=== PATIENT | male | born 1970 | race Caucasian/White ===

== ENCOUNTER 2020-06-18 13:54 | Inpatient (IN) | payer BC ==
[~2020-06-18] VITALS: Ht 170.2 cm; Wt 95.3 kg
--- NOTE | 2020-06-18 07:15 | NUR ---
NURSE NOTES: Received report from HERMINIO Bhagat. Pt is A&Ox4 in bed. Pt is in no distress or pain at this time and is able to make needs known. Patient has belongings at bedside, call light within reach, side rails up x2, bed locked and in lowest position. Will obtain admission orders Addendum: 06/19/20 at 0027 by Timothy Wood RN Edit: Note put in at 19:15 06-18-2020
--- NOTE | 2020-06-18 18:00 | NUR ---
NURSE NOTES: Patient received from [place] by paramedics into room 420 bed 2.patient is alert and oriented.respirations unlabored.IV in the upper left arm intact.patient has personal belongings,cell phone ,ground host/hostess at bedside. Patient has wallet with howard and credit cards but wants to keep at bedside.Offer was given to have valuables place in hospital safe but patient decline.Call light within reach.
[2020-06-18 18:05] VITALS: BP 130/85
--- NOTE | 2020-06-18 19:28 | NUR ---
NURSE HAND-OFF: Timothy DURHAM Important Events on Shift:[] Patient Status: [] stable alert and oriented. Diet: [] Pending Orders: [Waiting for DR Nguyễn edmond.] Pending Results/Labs:[] Pending MD notification:[] Latest Vital Signs: Temperature 98.4 , Pulse 68 , B/P 130 /85 , Respiratory Rate 18 , O2 SAT 94 , , O2 Flow Rate . Vital Sign Comment: [] Latest Fabian Fall Score: Fall Risk: Safety Measures: Call light Within Reach, Bed Alarm Zone 2, Side Rails Side Rails x1, Bed position Low and Locked. Fall Precautions: Yellow Socks Report given to [].
[2020-06-18 20:00] VITALS: BP 132/84
[2020-06-18] MEDS: NovoLOG Insulin Flexpen SUBQ SCH (21:00)
[2020-06-18] MEDS ORDERED: HydrALAZINE 25mg tab ORAL PRN (21:00)
--- NOTE | 2020-06-18 21:00 | NUR ---
NURSE NOTES: Received orders from , will input and carry them out as ordered.
[2020-06-18] MEDS: Heparin 5000 units/ml inj SUBQ SCH (21:32)
[2020-06-18] MEDS: NS w/KCl 20mEq 1000ml 1,000 ML IV SCH (21:34)
[2020-06-19] VITALS (11 sets, daily range): BP systolic 134–171; BP diastolic 70–108
[2020-06-19] MEDS ORDERED: NORVASC10 MG ORAL (05:15)
[2020-06-19] MEDS ORDERED: SERTRALINE HCL100 MG PO (05:15)
[2020-06-19] MEDS ORDERED: BUPROPION XL300 MG ORAL (05:15)
[2020-06-19] MEDS ORDERED: BENAZEPRIL HCL40 MG ORAL (05:15)
[2020-06-19] MEDS ORDERED: CRESTOR10 M1 ORAL (05:15)
[2020-06-19] MEDS ORDERED: HYDROCHLOROTH12.5 MG ORAL ×2 (05:15→09:02)
[2020-06-19] MEDS ORDERED: METHADONE HCL10 MG ORAL (05:15)
[2020-06-19] MEDS: Heparin 5000 units/ml inj SUBQ SCH ×3 (06:23→21:49)
[2020-06-19] MEDS: NovoLOG Insulin Flexpen SUBQ SCH ×4 (06:23→21:00)
[2020-06-19 06:43] LABS: BASOPHILS % (AUTO) 0.7 % (0.0-2.0); EOSINOPHILS % (AUTO) 0.8 % (0.0-3.0); HEMATOCRIT 43.8 % (42.0-52.0); HEMOGLOBIN 14.1 G/DL (14.2-18.0); LYMPHOCYTES % (AUTO) 18.2 % (20.0-45.0); MEAN CORPUSCULAR VOLUME 89 FL (80-99); MONOCYTES % (AUTO) 7.4 % (1.0-10.0); NEUTROPHILS % (AUTO) 72.8 % (45.0-75.0); PLATELET COUNT 221 K/UL (150-450); RED BLOOD COUNT 4.93 M/UL (4.70-6.10); RED CELL DISTRIBUTION WIDTH 13.4 % (11.6-14.8); WHITE BLOOD COUNT 13.1 K/UL (4.8-10.8)
[2020-06-19 07:07] LABS: ALANINE AMINOTRANSFERASE 37 U/L (12-78); ALBUMIN 3.8 G/DL (3.4-5.0); ALBUMIN/GLOBULIN RATIO 1.3 (1.0-2.7); ALKALINE PHOSPHATASE 61 U/L (46-116); ANION GAP 8 mmol/L (5-15); ASPARTATE AMINO TRANSFERASE 27 U/L (15-37); BILIRUBIN,TOTAL 0.5 MG/DL (0.2-1.0); BLOOD UREA NITROGEN 18 mg/dL (7-18); CALCIUM 8.4 MG/DL (8.5-10.1); CARBON DIOXIDE 29 MMOL/L (21-32); CHLORIDE 103 MMOL/L (98-107); CREATININE 0.9 MG/DL (0.55-1.30); PHOSPHORUS 2.9 MG/DL (2.5-4.9); SODIUM 140 MMOL/L (136-145)
--- NOTE | 2020-06-19 07:30 | NUR ---
NURSE NOTES: Report received from Timothy DURHAM , rounds made. Patient walking around room. AOx4, slightly anxious. Respirations even/unlabored on RA. RH pink, slightly swollen, IV clamped off, will attempt to restart new IV. Headache improved, /, requesting Methadone, will follow up with pharmacy. Call light in reach, bed in lowest position, will continue to monitor.
--- NOTE | 2020-06-19 07:30 | NUR ---
NURSE HAND-OFF: Important Events on Shift: headache, BS within normal limits Patient Status: calm Diet: ccho medium low salt Pending Orders: Pending Results/Labs: Pending MD notification: Latest Vital Signs: Temperature 99.1 , Pulse 75 , B/P 134 /74 , Respiratory Rate 16 , O2 SAT 97 , , O2 Flow Rate . Vital Sign Comment: VSS Latest Fabian Fall Score: 35 Fall Risk: Medium Risk Safety Measures: Call light Within Reach, Bed Alarm Zone 2, Side Rails Side Rails x2, Bed position Low and Locked. Fall Precautions: Yellow Socks Patient Fall Education Report given to HERMINIO Ly.
--- NOTE | 2020-06-19 07:35 | NUR ---
NURSE NOTES: Critical lab, Troponin 0.281, Dr. Adrian notified, orders to repeat Troponin in 6 hours.
--- NOTE | 2020-06-19 08:50 | NUR ---
NURSE NOTES: Medical Release Form for Methadone Clinic information, completed by patient and picked up by English Language Learner Teacher at this time.
[2020-06-19] MEDS: Atorvastatin 20mg tab ORAL SCH (08:56)
[2020-06-19] MEDS: BuPROPion XL 150mg tab ORAL SCH (08:56)
[2020-06-19] MEDS: Sertraline 100mg tab ORAL SCH (08:57)
--- NOTE | 2020-06-19 09:48 | NUR ---
NURSE NOTES: Dr. Adrian notified of patient requesting Hydrochlorothiazide 12.5 mg PO daily (home medication), reviewed BP 171/87 this AM and eMAR, orders to increase Norvasc to 10 mg PO daily and give Norvasc 5 mg PO x1 now. Will update patient, and follow as ordered.
[2020-06-19] MEDS: NS w/KCl 20mEq 1000ml 1,000 ML IV SCH (11:20)
--- NOTE | 2020-06-19 12:10 | NUR ---
NURSE NOTES: Patient requesting to go home today, notified Dr. dArian, no orders for discharge today, possibly tomorrow. Informed patient, he states he feels anxious because he does not know why he needs to stay in the hospital and when his doctor will come in to see him, RN explained that he will have repeat labs done later today (explained Troponin level) and that we need to monitor his blood sugar and blood pressure, verbalized understanding. Dr. Adrian notified of BP 171/108 (will medicate with Hydralazine as ordered) Dr. Adrian ordered Ativan 0.5 mg IV Q6H PRN anxiety and Maalox 30 ml Q6H PRN for Heartburn (patient was complaining of heartburn and had small emesis 25 ml undigested food, will medicate with Zofran if needed).
--- NOTE | 2020-06-19 12:16 | Consultation ---
History of Present Illness General Date patient seen: Jun 19, 2020 Present Illness HPI Very pleasant 50-year-old male who has been on methadone for some time states that he woke up in the morning took a dose of methadone had nausea and vomiting after emesis took a second dose of methadone and was soon after found down went to outside facility for evaluation at which point he was transferred to [facility] for further care given insurance reasons. States an outside facility was noted to have significantly elevated glucose levels. States he does not have a history of diabetes does overweight and risk factors noted. States he feels better now. No further syncopal episodes. Alert awake orient x4 no complaints. Does not recall the trauma though does not know if it was loss consciousness or syncopal event. Surgery called to evaluate for trauma and fall. Patient seen, patient evaluate, chart reviewed no abdominal pain no nausea vomiting fever chills at this time. Labs noted and okay. Allergies: Coded Allergies: No Known Allergies (Unverified , 06/18/20) COVID-19 Screening Contact w/high risk pt: No Experienced COVID-19 symptoms?: No Medication History Scheduled Amlodipine Besylate (Norvasc), 10 MG ORAL DAILY, (Reported) Benazepril Hcl* (Benazepril Hcl*), 40 MG ORAL DAILY, (Reported) Bupropion Hcl* (Wellbutrin*), 300 MG ORAL DAILY, (Reported) Hydrochlorothiazide* (Hydrochlorothiazide*), 12.5 MG ORAL DAILY, (Reported) Hydrochlorothiazide* (Hydrochlorothiazide*), 12.5 MG ORAL DAILY, (Reported) Methadone Hcl* (Methadone*), 120 MG ORAL DAILY, (Reported) Rosuvastatin Calcium (Crestor), 20 MG ORAL DAILY, (Reported) Sertraline Hcl* (Zoloft*), 200 MG PO DAILY, (Reported) Patient History History Provided By: Patient Healthcare decision maker N Resuscitation status Advanced Directive on File Past Medical/Surgical History Past Medical/Surgical History: (1) Syncope (2) Fall (3) Trauma Review of Systems Review of Symptoms General ROS: no weight loss or fever Psychological ROS: no depression or mood changes, no memory loss Ophthalmic ROS: no visual changes or eye irritation ENT ROS: no nasal congestion, hearing loss, dizziness Allergy and Immunology ROS: no allergic symptoms or urticaria Hematological and Lymphatic ROS: no swollen glands, unusual bleeding or bruising Endocrine ROS: no polyuria, polydipsia, weight changes, temperature intolerance Respiratory ROS: no cough, shortness of breath, or wheezing Cardiovascular ROS: no chest pain or dyspnea on exertion Gastrointestinal ROS: denies abdominal pain, bright red blood in stool. Musculoskeletal ROS: no myalgias or arthralgias Neurological ROS: no TIA or stroke symptoms Dermatological ROS: no new or changing skin lesions, rashes or pruritis Physical Exam Physical Exam General appearance: alert, cooperative, no distress, appears stated age Head: Normocephalic, without obvious abnormality, atraumatic Eyes: conjunctivae/corneas clear. PERRL, EOM's intact. Fundi benign Throat: Lips, mucosa, and tongue normal. Teeth and gums normal Neck: supple, symmetrical, trachea midline, no adenopathy, thyroid: not enlarged, symmetric, no tenderness/mass/nodules, no carotid bruit and no JVD Lungs: clear to auscultation bilaterally Heart: regular rate and rhythm, S1, S2 normal, no murmur, click, rub or gallop Abdomen: soft, non-tender. Bowel sounds normal. No masses, no organomegaly Extremities: extremities normal, atraumatic, no cyanosis or edema Pulses: 2+ and symmetric Skin: Skin color, texture, turgor normal. No rashes or lesions Neurologic: Grossly normal Last 24 Hour Vital Signs Date Time Temp Pulse Resp B/P (MAP) Pulse Ox O2 Delivery O2 Flow Rate FiO2 06/19/20 11:58 98.5 87 20 171/108 (129) 92 06/19/20 10:30 163/101 (121) 73 06/19/20 10:28 73 163/101 06/19/20 08:58 70 171/87 06/19/20 08:57 171/87 06/19/20 08:00 99.4 70 18 171/87 (115) 95 06/19/20 04:00 99.1 75 16 134/74 (94) 97 06/19/20 03:00 152/73 (99) 06/19/20 02:51 152/93 06/19/20 00:00 98.7 73 16 136/87 (103) 96 06/18/20 20:00 98.2 72 18 132/84 (100) 95 06/18/20 18:48 Room Air 06/18/20 18:05 98.4 68 18 130/85 (100) 94 Intake and Output 06/18/20 06/19/20 19:00 07:00 Intake Total 0 ml 880 ml Balance 0 ml 880 ml Intake Oral 0 ml 880 ml # Voids 4 Laboratory Tests Test 06/19/20 05:20 White Blood Count 13.1 K/UL (4.8-10.8) H Red Blood Count 4.93 M/UL (4.70-6.10) Hemoglobin 14.1 G/DL (14.2-18.0) L Hematocrit 43.8 % (42.0-52.0) Mean Corpuscular Volume 89 FL (80-99) Mean Corpuscular Hemoglobin 28.7 PG (27.0-31.0) Mean Corpuscular Hemoglobin Concent 32.3 G/DL (32.0-36.0) Red Cell Distribution Width 13.4 % (11.6-14.8) Platelet Count 221 K/UL (150-450) Mean Platelet Volume 7.2 FL (6.5-10.1) Neutrophils (%) (Auto) 72.8 % (45.0-75.0) Lymphocytes (%) (Auto) 18.2 % (20.0-45.0) L Monocytes (%) (Auto) 7.4 % (1.0-10.0) Eosinophils (%) (Auto) 0.8 % (0.0-3.0) Basophils (%) (Auto) 0.7 % (0.0-2.0) Sodium Level 140 MMOL/L (136-145) Potassium Level 4.0 MMOL/L (3.5-5.1) Chloride Level 103 MMOL/L (98-107) Carbon Dioxide Level 29 MMOL/L (21-32) Anion Gap 8 mmol/L (5-15) Blood Urea Nitrogen 18 mg/dL (7-18) Creatinine 0.9 MG/DL (0.55-1.30) Estimat Glomerular Filtration Rate > 60 mL/min (>60) Glucose Level 92 MG/DL (74-106) Hemoglobin A1c 5.9 % (4.3-6.0) Calcium Level 8.4 MG/DL (8.5-10.1) L Phosphorus Level 2.9 MG/DL (2.5-4.9) Magnesium Level 2.3 MG/DL (1.8-2.4) Total Bilirubin 0.5 MG/DL (0.2-1.0) Aspartate Amino Transf (AST/SGOT) 27 U/L (15-37) Alanine Aminotransferase (ALT/SGPT) 37 U/L (12-78) Alkaline Phosphatase 61 U/L (46-116) Troponin I 0.281 ng/mL (0.000-0.056) Total Protein 6.8 G/DL (6.4-8.2) Albumin 3.8 G/DL (3.4-5.0) Globulin 3.0 g/dL Albumin/Globulin Ratio 1.3 (1.0-2.7) Height (Feet): 5 Height (Inches): 7.00 Weight (Pounds): 210 Medications Current Medications Medications (Trade) Dose Ordered Sig/Molly Route PRN Reason Start Time Stop Time Status Last Admin Dose Admin Acetaminophen (Tylenol) 650 mg Q6H PRN ORAL Temp >100.5 06/18/20 21:00 07/18/20 20:59 06/19/20 02:53 Amlodipine Besylate (Norvasc) 10 mg DAILY ORAL 06/20/20 09:00 07/19/20 08:59 Atorvastatin Calcium (Lipitor) 40 mg DAILY ORAL 06/19/20 09:00 09/17/20 08:59 06/19/20 08:56 Benazepril HCl (Lotensin) 40 mg DAILY ORAL 06/19/20 09:00 07/19/20 08:59 06/19/20 08:57 Bupropion HCl (Wellbutrin XL) 300 mg Q24HRS ORAL 06/19/20 09:00 07/19/20 08:59 06/19/20 08:56 Dextrose (Dextrose 50%) 25 ml Q30M PRN IV Hypoglycemia 06/18/20 19:45 09/16/20 19:44 Dextrose (Dextrose 50%) 50 ml Q30M PRN IV Hypoglycemia 06/18/20 19:45 09/16/20 19:44 Heparin Sodium (Porcine) (Heparin 5000 units/ml) 5,000 units EVERY 8 HOURS SUBQ 06/18/20 22:00 08/02/20 21:59 06/19/20 06:23 Hydralazine HCl (Apresoline) 25 mg Q6H PRN ORAL SBP >150 06/18/20 21:00 09/16/20 20:59 06/19/20 02:51 Insulin Aspart (NovoLOG) BEFORE MEALS AND HS SUBQ 06/18/20 21:00 09/16/20 20:59 Methadone HCl (Methadone HCl) 120 mg DAILY ORAL 06/19/20 10:00 06/26/20 09:59 06/19/20 10:27 Ondansetron HCl (Zofran) 4 mg Q4H PRN IVP Nausea & Vomiting 06/18/20 21:00 07/18/20 20:59 Potassium Chloride/Sodium Chloride 1,000 ml @ 75 mls/hr [id number] IV 06/18/20 22:00 07/18/20 21:59 06/18/20 21:34 Sertraline HCl (Zoloft) 200 mg DAILY ORAL 06/19/20 09:00 07/19/20 08:59 06/19/20 08:57 Tramadol HCl (Ultram) 50 mg Q6H PRN ORAL Moderate Pain (Pain Scale 4-6) 06/18/20 21:00 06/25/20 20:59 Zolpidem Tartrate (Ambien) 5 mg HSPRN PRN ORAL Insomnia 06/18/20 21:00 06/25/20 20:59 Assessment/Plan Problem List: (1) Syncope ICD Codes: R55 - Syncope and collapse SNOMED: 427051757 (2) Trauma Assessment & Plan: 50-year-old male found down syncopal episode possible loss consciousness trauma likely related to excess dose of methadone. Patient identified to have abnormal labs initially upon outside facility evaluation currently normalized. No diabetic history. On examination no trauma. No hematoma no bruising no fractures no pain. At this time given history considerations on like waiting significant trauma ground-level fall. No further imaging indicated recommended at this time. Most work-up done at the outside facility. Labs noted okay at this point. Evaluate diet. DC planning will follow with recommendations. Thank you letting participate patient's care ICD Codes: T14.90XA - Injury, unspecified, initial encounter SNOMED: 746663447 (3) Fall ICD Codes: W19.XXXA - Unspecified fall, initial encounter SNOMED: 9778773, [id number] Marbin Muñoz Jun 19, 2020 12:16
--- NOTE | 2020-06-19 13:50 | NUR ---
NURSE NOTES: Patient reports mid chest soreness due to chest compressions done by his at home prior to his admission, denies chest pain or left arm pain. O2 sats 89-90% on RA, while patient at rest, not speaking, not c/o any pain, medicated with Ativan as ordered. Dr. Adrian notified of above, orders for O2 2LNC, will apply and reassess. Will update patient.
[2020-06-19] MEDS: LORazepam Inj 2mg/ml 1ml IV PRN (13:52)
--- NOTE | 2020-06-19 14:45 | NUR ---
NURSE NOTES: O2 2L NC on, sats 93-94%, will continue to monitor. No SOB or cough noted.
--- NOTE | 2020-06-19 15:30 | NUR ---
NURSE NOTES: Dr. Adrian and Dr. Bee notified of critical value Troponin 0.125, no further orders.
--- NOTE | 2020-06-19 16:44 | History & Physical ---
History and Physical History & Physicial Dictated for Int Med-DR Adrian no. [id number] Manny Bee MD Jun 19, 2020 16:44
--- NOTE | 2020-06-19 17:00 | NUR ---
NURSE NOTES: Dr. Black notified of critical value Troponin 0.125
--- NOTE | 2020-06-19 17:03 | Cardiac Electrophysiology PN ---
Subjective Subjective [id number] Objective Last 24 Hour Vital Signs Date Time Temp Pulse Resp B/P (MAP) Pulse Ox O2 Delivery O2 Flow Rate FiO2 06/19/20 14:22 67 147/71 (96) 06/19/20 14:22 67 18 147/71 90 06/19/20 13:52 77 20 161/91 90 06/19/20 13:50 77 161/91 (114) 06/19/20 12:37 82 146/80 (102) 06/19/20 11:58 98.5 87 20 171/108 (129) 92 06/19/20 10:30 163/101 (121) 73 06/19/20 10:28 73 163/101 06/19/20 08:58 70 171/87 06/19/20 08:57 171/87 06/19/20 08:00 99.4 70 18 171/87 (115) 95 06/19/20 04:00 99.1 75 16 134/74 (94) 97 06/19/20 03:00 152/73 (99) 06/19/20 02:51 152/93 06/19/20 00:00 98.7 73 16 136/87 (103) 96 06/18/20 20:00 98.2 72 18 132/84 (100) 95 06/18/20 18:48 Room Air 06/18/20 18:05 98.4 68 18 130/85 (100) 94 Intake and Output 06/18/20 06/19/20 19:00 07:00 Intake Total 0 ml 880 ml Balance 0 ml 880 ml Intake Oral 0 ml 880 ml # Voids 4 Laboratory Tests Test 06/19/20 05:20 06/19/20 14:12 White Blood Count 13.1 K/UL (4.8-10.8) H Red Blood Count 4.93 M/UL (4.70-6.10) Hemoglobin 14.1 G/DL (14.2-18.0) L Hematocrit 43.8 % (42.0-52.0) Mean Corpuscular Volume 89 FL (80-99) Mean Corpuscular Hemoglobin 28.7 PG (27.0-31.0) Mean Corpuscular Hemoglobin Concent 32.3 G/DL (32.0-36.0) Red Cell Distribution Width 13.4 % (11.6-14.8) Platelet Count 221 K/UL (150-450) Mean Platelet Volume 7.2 FL (6.5-10.1) Neutrophils (%) (Auto) 72.8 % (45.0-75.0) Lymphocytes (%) (Auto) 18.2 % (20.0-45.0) L Monocytes (%) (Auto) 7.4 % (1.0-10.0) Eosinophils (%) (Auto) 0.8 % (0.0-3.0) Basophils (%) (Auto) 0.7 % (0.0-2.0) Sodium Level 140 MMOL/L (136-145) Potassium Level 4.0 MMOL/L (3.5-5.1) Chloride Level 103 MMOL/L (98-107) Carbon Dioxide Level 29 MMOL/L (21-32) Anion Gap 8 mmol/L (5-15) Blood Urea Nitrogen 18 mg/dL (7-18) Creatinine 0.9 MG/DL (0.55-1.30) Estimat Glomerular Filtration Rate > 60 mL/min (>60) Glucose Level 92 MG/DL (74-106) Hemoglobin A1c 5.9 % (4.3-6.0) Calcium Level 8.4 MG/DL (8.5-10.1) L Phosphorus Level 2.9 MG/DL (2.5-4.9) Magnesium Level 2.3 MG/DL (1.8-2.4) Total Bilirubin 0.5 MG/DL (0.2-1.0) Aspartate Amino Transf (AST/SGOT) 27 U/L (15-37) Alanine Aminotransferase (ALT/SGPT) 37 U/L (12-78) Alkaline Phosphatase 61 U/L (46-116) Troponin I 0.281 ng/mL (0.000-0.056) 0.125 ng/mL (0.000-0.056) Total Protein 6.8 G/DL (6.4-8.2) Albumin 3.8 G/DL (3.4-5.0) Globulin 3.0 g/dL Albumin/Globulin Ratio 1.3 (1.0-2.7) Jose R Rutledge MD Jun 19, 2020 17:03
--- NOTE | 2020-06-19 17:50 | NUR ---
NURSE NOTES: Dr. Black notified of EKG results and that patient will not be transferred to TELE until next shift due to no RN available to take patient at this time, Dr. Bee aware of transfer delay as well. Addendum: 06/19/20 at 1806 by Aliyah Paulino RN No further orders.
--- NOTE | 2020-06-19 18:00 | NUR ---
NURSE NOTES: Notified Dr. Black regarding clarification on timed Troponin lab order, order to change to Troponin level every 8 hours, starting 06/20 at 0700, will order.
--- NOTE | 2020-06-19 19:25 | NUR ---
NURSE HAND-OFF: Important Events on Shift:PENDING TRANSFER TO TELE, Medicated with Ativan 0.5 mg IV x1 (anxious), Maalox x1, EKG done, Troponin critical value x2 ( 0.281 and 0.125, MD aware), Emesis x1 (25 ml), desats on RA 87-89%, O2 2LNC 92-94%, elevated BP Patient Status: stable Diet: CCHO med Low Na Pending Orders: Tele Transfer, Labs AM Pending Results/Labs: see list, Troponin (timed Q8H, starting 06/20 0700) Pending MD notification: none Latest Vital Signs: Temperature 98.0 , Pulse 73 , B/P 143 /70 , Respiratory Rate 18 , O2 SAT 92 , , O2 Flow Rate . Vital Sign Comment: monitor BP, O2 sat Latest Fabian Fall Score: 35 Fall Risk: Medium Risk Safety Measures: Call light Within Reach, Bed Alarm Zone 2, Side Rails Side Rails x2, Bed position Low and Locked. Fall Precautions: Yellow Socks Patient Fall Education Report given to Sarah DURHAM.
[2020-06-19] MEDS: traMADol 50mg tab ORAL PRN (19:43)
--- NOTE | 2020-06-19 19:59 | History and Physical Report ---
DATE OF ADMISSION: 06/18/2020 CHIEF COMPLAINT: The patient is a 50-year-old male who presents with a chief complaint of opiate overdose. HISTORY OF PRESENT ILLNESS: The patient has a history of OxyContin use. The patient has then used heroin for a period of time. The patient has been on methadone for the past 10 years. The patient presented to his methadone clinic on June 18, 2020. The patient vomited his methadone dose. The patient took an extra dose of methadone. The patient then was found to be unresponsive. The patient received Narcan in the field. The patient had resolution of unresponsiveness. The patient initially presented to [facility] emergency room. The patient is transferred to [facility] for insurance purposes. The patient is admitted with methadone overdose. REVIEW OF SYSTEMS: CONSTITUTIONAL: The patient denies weight loss or weight gain. The patient denies fevers or chills. HEENT: The patient denies ear or throat pain. The patient denies headache. CARDIOVASCULAR: The patient denies palpitations or chest pain. CHEST: The patient denies wheeze or shortness of breath. ABDOMINAL: The patient denies nausea, vomiting, diarrhea, or constipation. GENITOURINARY: The patient denies dysuria or increased frequency of urination. NEUROMUSCULAR: The patient denies seizures or generalized weakness. PAST MEDICAL HISTORY: Significant for, 1. Opiate dependence in remission as above. 2. Hypertension. 3. Major depression. 4. Obstructive sleep apnea. PAST SURGICAL HISTORY: Significant for umbilical hernia repair. CURRENT MEDICATIONS: 1. Amlodipine 10 mg p.o. daily. 2. Benazepril 40 mg p.o. daily. 3. Wellbutrin ER 300 mg p.o. daily. 4. Hydrochlorothiazide 12.5 mg p.o. daily. 5. Methadone 120 mg p.o. daily. 6. Rosuvastatin 20 mg p.o. daily. 7. Zoloft 200 mg p.o. daily. ALLERGIES: No known drug allergies. SOCIAL HISTORY: The patient is . The patient admits to previous opioid use as above. The patient denies tobacco or alcohol use. PHYSICAL EXAMINATION: VITAL SIGNS: Temperature 98.5, respirations 20, pulse 100, and blood pressure 112/69. GENERAL: The patient is a well-developed and well-nourished male, in no apparent distress. HEENT: Eyes, pupils are equal and responsive to light and accommodation. Extraocular movements are intact. NECK: Supple without lymphadenopathy. CHEST: Lungs are clear to auscultation bilaterally without wheezes or rales. CARDIOVASCULAR: Regular rhythm and rate. S1, S2 are normal without murmurs, rubs, or gallops. ABDOMEN: Soft, nontender, and nondistended. Positive bowel sounds. No evidence of hepatosplenomegaly. Currently, no rebound or guarding noted. EXTREMITIES: Negative for clubbing, cyanosis, or edema. RECTAL/GENITAL: Not performed. NEUROLOGIC: Cranial nerves II through XII are grossly intact without focal deficits. Motor strength is 5/5 bilaterally. Deep tendon reflexes are 2+ plantar. LABORATORY STUDIES: WBC 23.5, hemoglobin 17.3, hematocrit 54.2, and platelets 305,000. Sodium 134, potassium 5.4, chloride 99, CO2 19, BUN 19, creatinine 1.57, and glucose 414. Troponin elevated at 0.06. BNP 75. Lipase 125. Serum alcohol level less than 10. Urine drug screen was negative. ASSESSMENT: This is a 50-year-old, male. 1. Opiate overdose. 2. Hypertension. 3. Major depression. 4. Elevated troponin. TREATMENT: 1. Opiate overdose. Continue Narcan p.r.n. as above. Opiate overdose was secondary to taking the second dose of methadone. 2. Hypertension. Continue amlodipine, benazepril, and hydrochlorothiazide as above. 3. Major depression. Continue Wellbutrin and Zoloft as above. 4. Elevated troponin. A Cardiology consultation is pending with Dr. Jose R Rutledge. Elevated troponin may be secondary to rhabdomyolysis. 5. Hypercholesterolemia. Continue rosuvastatin as above. Manny Bee M.D. DR: MONTSERRAT JOB#: [id number] CC:
--- NOTE | 2020-06-19 20:10 | NUR ---
NURSE NOTES: Received patient awake, alert, verbal, no SOB noted. Complained of back pain, subsequently given prn medication for pain.For transfer to Telemetry.
--- NOTE | 2020-06-19 20:28 | NUR ---
NURSE NOTES: Patient transferred to room 202-1. Report given to HERMINIO Merida, belongings endorsed likewise.
--- NOTE | 2020-06-19 20:30 | NUR ---
NURSE NOTES: Report received from HERMINIO Smith. AOx4, able to verbalize needs. IV site on RH#22, saline lock. on room air, saturating well. security monitor placed on patient, noted to be SB to SR on traffic monitor specialist. Patient's belongings signed and accounted for. Bed in lowest position, brakes engaged and bed alarm on. Call light placed within reach.
--- NOTE | 2020-06-19 22:59 | Consultation ---
DATE OF CONSULTATION: 06/19/2020 CARDIOLOGY CONSULTATION CONSULTING PHYSICIAN: Jose R Rutledge M.D. REFERRING PHYSICIAN: Fercho Adrian M.D. REASON FOR CONSULTATION: Management of hypertension as well as elevated troponin. HISTORY OF PRESENT ILLNESS: The patient is a very pleasant 50-year-old gentleman with history of hypertension and has been also on methadone for more than 10 years for chronic back pain who woke up in the morning, took a dose of methadone and had vomiting. After that, he took a second dose of methadone, and then after that, he was found down. The patient apparently had CPR by his . The patient was then taken to [facility] and was transferred to [facility] in view of the insurance reason. The patient also had elevated glucose level even though the patient does not have history of diabetes. The patient is not quite sure whether he completely lost consciousness or not. The patient subsequently had 2 elevated troponins, and Cardiology consultation was obtained for further evaluation. In the emergency room, also blood pressure was 171/108. REVIEW OF SYSTEMS: Negative other than what is mentioned in the history of present illness. PAST MEDICAL HISTORY: As mentioned above. FAMILY HISTORY: Noncontributory. SOCIAL HISTORY: He lives at home with his . He does not smoke or drink alcohol. PHYSICAL EXAMINATION: VITAL SIGNS: Show blood pressure of 161/91, pulse is 77, respirations 18, and he is afebrile. HEAD AND NECK: Showed no JVD. LUNGS: Clear. CARDIOVASCULAR: Shows regular S1 and S2 with no gallop or murmur. ABDOMEN: Soft. EXTREMITIES: No pitting edema. LABORATORY DATA: His labs show sodium 140, potassium 4.0, BUN of 18, creatinine 0.9, and glucose of 93. Troponin 0.28 and 0.125. White count is 13.1, hemoglobin of 14.1, hematocrit of 43, and platelet count of 221,000. ASSESSMENT AND PLAN: 1. Non-ST elevation myocardial infarction. 2. Severe cardiac enzymes. Subsequent troponin is coming down. We will get a stat EKG and get a stat echocardiogram. We will transfer the patient to telemetry and repeat the EKG. At this time, the patient has some residual chest discomfort that he believes is because of the CPR that he received from his . In the meantime, we will treat the patient with aspirin and metoprolol and Lipitor. 3. Accelerated hypertension. Amlodipine increased to 10 mg daily, also on benazepril 40 mg daily and metoprolol in view of acute coronary syndrome. 4. Elevated glucose level. Possible prediabetes. 5. Syncope. It is not clear, but could be due to methadone overdose or non-ST elevation myocardial infarction. EKG and echocardiogram and repeat troponin are pending. Thank you very much for allowing me to participate in the care of this patient. Please do not hesitate to contact me for any questions regarding my evaluation. Sincerely, Jose R Rutledge M.D. DR: FRANCES JOB#: [id number] CC:
[2020-06-20] VITALS: BP 134/84
[2020-06-20 04:00] VITALS: BP 146/89
[2020-06-20] MEDS: Heparin 5000 units/ml inj SUBQ SCH ×3 (05:57→21:32)
[2020-06-20] MEDS: NovoLOG Insulin Flexpen SUBQ SCH ×4 (05:58→21:00)
--- NOTE | 2020-06-20 07:22 | NUR ---
NURSE HAND-OFF REPORT: Important Events on Shift:[Transfer to ; Vomit x1] Patient Status: [full code] Diet: [CCHO med, low sodium] Pending Orders: [] Pending Results/Labs:[AM labs, trop series] Pending MD notification:[] Latest Vital Signs: Temperature 98.5 , Pulse 65 , B/P 146 /89 , Respiratory Rate 20 , O2 SAT 93 , , O2 Flow Rate . Vital Sign Comment: [] EKG Rhythm: Sinus Rhythm Rhythm change?: N MD Notified?: - MD Response: Latest Fabian Fall Score: 35 Fall Risk: Medium Risk Safety Measures: Call light Within Reach, Bed Alarm Zone 2, Side Rails Side Rails x2, Bed position Low and Locked. Fall Precautions: Yellow Socks Door Sign Patient Fall Education Report given to [LUIS ENRIQUE Weber].
--- NOTE | 2020-06-20 07:30 | NUR ---
NURSE NOTES: Report received from HERMINIO meyers. AOx4, able to verbalize needs. ambulates with steady gait. PIV site on RH#22, patent and intact. saline lock. on room air, saturating well. classroom monitor placed on patient, SR on bus driver/monitor. Bed in lowest position, brakes engaged and bed alarm on. Call light placed within reach. will cont to monitor.
[2020-06-20 08:00] VITALS: BP 153/83
[2020-06-20] MEDS: Atorvastatin 20mg tab ORAL SCH (08:13)
[2020-06-20] MEDS: Sertraline 100mg tab ORAL SCH (08:13)
[2020-06-20] MEDS: Aspirin EC 81mg tab ORAL SCH (08:14)
[2020-06-20 08:25] LABS: BASOPHILS % (AUTO) 1.1 % (0.0-2.0); EOSINOPHILS % (AUTO) 2.5 % (0.0-3.0); HEMATOCRIT 45.2 % (42.0-52.0); HEMOGLOBIN 14.9 G/DL (14.2-18.0); LYMPHOCYTES % (AUTO) 30.7 % (20.0-45.0); MEAN CORPUSCULAR VOLUME 87 FL (80-99); MONOCYTES % (AUTO) 9.3 % (1.0-10.0); NEUTROPHILS % (AUTO) 56.5 % (45.0-75.0); PLATELET COUNT 252 K/UL (150-450); RED BLOOD COUNT 5.17 M/UL (4.70-6.10); WHITE BLOOD COUNT 8.9 K/UL (4.8-10.8)
[2020-06-20 08:34] LABS: ALANINE AMINOTRANSFERASE 45 U/L (12-78); ALBUMIN 4.1 G/DL (3.4-5.0); ALBUMIN/GLOBULIN RATIO 1.3 (1.0-2.7); ALKALINE PHOSPHATASE 63 U/L (46-116); AMYLASE 61 U/L (25-115); ANION GAP 8 mmol/L (5-15); ASPARTATE AMINO TRANSFERASE 27 U/L (15-37); BILIRUBIN,TOTAL 0.5 MG/DL (0.2-1.0); BLOOD UREA NITROGEN 11 mg/dL (7-18); CALCIUM 8.7 MG/DL (8.5-10.1); CARBON DIOXIDE 30 MMOL/L (21-32); CHLORIDE 102 MMOL/L (98-107); CREATININE 0.7 MG/DL (0.55-1.30); POTASSIUM 3.9 MMOL/L (3.5-5.1); SODIUM 140 MMOL/L (136-145)
[2020-06-20] MEDS: BuPROPion XL 150mg tab ORAL SCH (10:04)
--- NOTE | 2020-06-20 10:53 | NUR ---
NURSE NOTES: RELAYED TO DR TREVINO 2D ECHO'S AND TROP. RESULTS FOR TODAY'S LABS. AWAITING FOR CLEARANCE RESPONSE. PATIENT ADAMANT TO GO HOME. INFORMED DR CLARKE. AWAITING FOR RESPONSE. WILL CONT TO MONITOR. Addendum: 06/20/20 at 1454 by DUNG WHITAKER LVN received orders to discharge after Dr Bee will see the patient. However, on cardiology perspective is not cleared. Dr trevino spoke with the patient. will cont to monitor.
--- NOTE | 2020-06-20 11:21 | NUR ---
NURSE NOTES: PIV access was off and does not want to be reinserted. Explained the indications and importance of PIV access. will cont to monitor.
--- NOTE | 2020-06-20 11:29 | Surgery Progress Note ---
Surgery Progress Note Subjective Symptoms: improved, pain absent, tolerating diet, voiding well, passing flatus, BM Additional Comments cardiac noted pending echo cards input appreciated on tele Objective Last 24 Hour Vital Signs Date Time Temp Pulse Resp B/P (MAP) Pulse Ox O2 Delivery O2 Flow Rate FiO2 06/20/20 09:00 Room Air 06/20/20 08:18 68 153/83 06/20/20 08:17 68 153/83 06/20/20 08:17 153/83 06/20/20 08:00 97.9 68 19 153/83 (106) 92 06/20/20 08:00 58 06/20/20 04:00 98.5 57 20 146/89 (108) 93 06/20/20 04:00 65 06/20/20 00:00 52 06/20/20 00:00 97.1 60 20 134/84 (101) 95 06/19/20 22:24 98.1 06/19/20 21:48 67 138/83 06/19/20 21:00 Room Air 06/19/20 20:13 98.1 06/19/20 20:00 67 06/19/20 19:58 98.1 75 17 139/78 (98) 91 06/19/20 17:00 98.0 73 18 143/70 (94) 92 06/19/20 14:22 67 147/71 (96) 06/19/20 14:22 67 18 147/71 90 06/19/20 13:52 77 20 161/91 90 06/19/20 13:50 77 161/91 (114) 06/19/20 12:37 82 146/80 (102) 06/19/20 11:58 98.5 87 20 171/108 (129) 92 I&O Intake and Output 06/19/20 06/20/20 19:00 07:00 Intake Total 480 ml 400 ml Output Total 25 ml 25 ml Balance 455 ml 375 ml Intake Oral 480 ml 400 ml Output Emesis 25 ml 25 ml # Voids 3 3 Cardiovascular: RSR Respiratory: clear Abdomen: soft, flat, non-tender, present bowel sounds, non-distended Extremities: no edema, no tenderness, no cyanosis Laboratory Tests Test 06/19/20 14:12 06/20/20 07:00 Troponin I 0.125 ng/mL (0.000-0.056) 0.052 ng/mL (0.000-0.056) White Blood Count 8.9 K/UL (4.8-10.8) Red Blood Count 5.17 M/UL (4.70-6.10) Hemoglobin 14.9 G/DL (14.2-18.0) Hematocrit 45.2 % (42.0-52.0) Mean Corpuscular Volume 87 FL (80-99) Mean Corpuscular Hemoglobin 28.8 PG (27.0-31.0) Mean Corpuscular Hemoglobin Concent 32.9 G/DL (32.0-36.0) Red Cell Distribution Width 13.0 % (11.6-14.8) Platelet Count 252 K/UL (150-450) Mean Platelet Volume 8.3 FL (6.5-10.1) Neutrophils (%) (Auto) 56.5 % (45.0-75.0) Lymphocytes (%) (Auto) 30.7 % (20.0-45.0) Monocytes (%) (Auto) 9.3 % (1.0-10.0) Eosinophils (%) (Auto) 2.5 % (0.0-3.0) Basophils (%) (Auto) 1.1 % (0.0-2.0) Erythrocyte Sedimentation Rate 3 MM/HR (0-20) Prothrombin Time 11.3 SEC (9.30-11.50) Prothromb Time International Ratio 1.0 (0.9-1.1) Activated Partial Thromboplast Time 26 SEC (23-33) Sodium Level 140 MMOL/L (136-145) Potassium Level 3.9 MMOL/L (3.5-5.1) Chloride Level 102 MMOL/L (98-107) Carbon Dioxide Level 30 MMOL/L (21-32) Anion Gap 8 mmol/L (5-15) Blood Urea Nitrogen 11 mg/dL (7-18) Creatinine 0.7 MG/DL (0.55-1.30) Estimat Glomerular Filtration Rate > 60 mL/min (>60) Glucose Level 132 MG/DL (74-106) H Lactic Acid Level 0.70 mmol/L (0.4-2.0) Calcium Level 8.7 MG/DL (8.5-10.1) Total Bilirubin 0.5 MG/DL (0.2-1.0) Aspartate Amino Transf (AST/SGOT) 27 U/L (15-37) Alanine Aminotransferase (ALT/SGPT) 45 U/L (12-78) Alkaline Phosphatase 63 U/L (46-116) C-Reactive Protein, Quantitative 1.3 mg/dL (0.00-0.90) H Pro-B-Type Natriuretic Peptide 307 pg/mL (0-125) H Total Protein 7.3 G/DL (6.4-8.2) Albumin 4.1 G/DL (3.4-5.0) Globulin 3.2 g/dL Albumin/Globulin Ratio 1.3 (1.0-2.7) Amylase Level 61 U/L (25-115) Lipase 63 U/L (73-393) L Plan Problems: (1) Syncope (2) Trauma Assessment & Plan: 50-year-old male found down syncopal episode possible loss consciousness trauma likely related to excess dose of methadone. Patient identified to have abnormal labs initially upon outside facility evaluation currently normalized. No diabetic history. On examination no trauma. No hematoma no bruising no fractures no pain. At this time given history considerations on like waiting significant trauma ground-level fall. No further imaging indicated recommended at this time. Most work-up done at the outside facility. Labs noted okay at this point. Evaluate diet. DC planning will follow with recommendations. Thank you letting participate patient's care cardiology eval clear from surgery/trauma (3) Fall Marbin Muñoz Jun 20, 2020 11:29
[2020-06-20 12:00] VITALS: BP 129/78
--- NOTE | 2020-06-20 14:03 | Internal Med Progress Note ---
Subjective Date of Service: Jun 20, 2020 Physician Name Bee,Manny Attending Physician Fercho Adrian MD Current Medications Medications (Trade) Dose Ordered Sig/Molly Route PRN Reason Start Time Stop Time Status Last Admin Dose Admin Acetaminophen (Tylenol) 650 mg Q6H PRN ORAL Temp >100.5 06/18/20 21:00 07/18/20 20:59 06/19/20 21:54 Al Hydroxide/Mg Hydroxide (Mylanta) 30 ml Q6H PRN ORAL HEARTBURN 06/19/20 12:15 07/19/20 12:14 06/19/20 12:38 Amlodipine Besylate (Norvasc) 10 mg DAILY ORAL 06/20/20 09:00 07/19/20 08:59 06/20/20 08:18 Aspirin (Ecotrin) 81 mg DAILY ORAL 06/20/20 09:00 08/04/20 08:59 06/20/20 08:14 Atorvastatin Calcium (Lipitor) 40 mg DAILY ORAL 06/19/20 09:00 09/17/20 08:59 06/20/20 08:13 Benazepril HCl (Lotensin) 40 mg DAILY ORAL 06/19/20 09:00 07/19/20 08:59 06/20/20 08:17 Bupropion HCl (Wellbutrin XL) 300 mg Q24HRS ORAL 06/19/20 09:00 07/19/20 08:59 06/20/20 10:04 Dextrose (Dextrose 50%) 25 ml Q30M PRN IV Hypoglycemia 06/18/20 19:45 09/16/20 19:44 Dextrose (Dextrose 50%) 50 ml Q30M PRN IV Hypoglycemia 06/18/20 19:45 09/16/20 19:44 Heparin Sodium (Porcine) (Heparin 5000 units/ml) 5,000 units EVERY 8 HOURS SUBQ 06/18/20 22:00 08/02/20 21:59 06/20/20 05:57 Hydralazine HCl (Apresoline) 25 mg Q6H PRN ORAL SBP >150 06/18/20 21:00 09/16/20 20:59 06/19/20 02:51 Insulin Aspart (NovoLOG) BEFORE MEALS AND HS SUBQ 06/18/20 21:00 09/16/20 20:59 06/20/20 05:58 Lorazepam (Ativan 2mg/ml 1ml) 0.5 mg EVERY 6 HOURS PRN IV For Anxiety 06/19/20 12:15 06/26/20 12:14 06/19/20 13:52 Methadone HCl (Methadone HCl) 120 mg DAILY ORAL 06/19/20 10:00 06/26/20 09:59 06/20/20 08:17 Metoprolol Tartrate (Lopressor) 25 mg EVERY 12 HOURS ORAL 06/19/20 21:00 09/17/20 20:59 06/20/20 08:17 Ondansetron HCl (Zofran) 4 mg Q4H PRN IVP Nausea & Vomiting 06/18/20 21:00 07/18/20 20:59 06/20/20 10:10 Sertraline HCl (Zoloft) 200 mg DAILY ORAL 06/19/20 09:00 07/19/20 08:59 06/20/20 08:13 Tramadol HCl (Ultram) 50 mg Q6H PRN ORAL Moderate Pain (Pain Scale 4-6) 06/18/20 21:00 06/25/20 20:59 06/19/20 19:43 Zolpidem Tartrate (Ambien) 5 mg HSPRN PRN ORAL Insomnia 06/18/20 21:00 06/25/20 20:59 Allergies: Coded Allergies: No Known Allergies (Unverified , 06/18/20) ROS Limited/Unobtainable: No Constitutional: Reports: no symptoms HEENT: Reports: no symptoms Cardiovascular: Reports: chest pain Respiratory: Reports: no symptoms Gastrointestinal/Abdominal: Reports: no symptoms Genitourinary: Reports: no symptoms Neurologic/Psychiatric: Reports: no symptoms Subjective 50 YO M admitted with opiate overdose. Now Non ST elev ND. Cover for Int Eduardo- Dr Adrian Objective Last Vital Signs Date Time Temp Pulse Resp B/P (MAP) Pulse Ox O2 Delivery O2 Flow Rate FiO2 06/20/20 12:00 57 06/20/20 12:00 96.0 20 129/78 (95) 94 06/20/20 09:00 Room Air Laboratory Tests Test 06/19/20 14:12 06/20/20 07:00 Troponin I 0.125 ng/mL (0.000-0.056) 0.052 ng/mL (0.000-0.056) White Blood Count 8.9 K/UL (4.8-10.8) Red Blood Count 5.17 M/UL (4.70-6.10) Hemoglobin 14.9 G/DL (14.2-18.0) Hematocrit 45.2 % (42.0-52.0) Mean Corpuscular Volume 87 FL (80-99) Mean Corpuscular Hemoglobin 28.8 PG (27.0-31.0) Mean Corpuscular Hemoglobin Concent 32.9 G/DL (32.0-36.0) Red Cell Distribution Width 13.0 % (11.6-14.8) Platelet Count 252 K/UL (150-450) Mean Platelet Volume 8.3 FL (6.5-10.1) Neutrophils (%) (Auto) 56.5 % (45.0-75.0) Lymphocytes (%) (Auto) 30.7 % (20.0-45.0) Monocytes (%) (Auto) 9.3 % (1.0-10.0) Eosinophils (%) (Auto) 2.5 % (0.0-3.0) Basophils (%) (Auto) 1.1 % (0.0-2.0) Erythrocyte Sedimentation Rate 3 MM/HR (0-20) Prothrombin Time 11.3 SEC (9.30-11.50) Prothromb Time International Ratio 1.0 (0.9-1.1) Activated Partial Thromboplast Time 26 SEC (23-33) Sodium Level 140 MMOL/L (136-145) Potassium Level 3.9 MMOL/L (3.5-5.1) Chloride Level 102 MMOL/L (98-107) Carbon Dioxide Level 30 MMOL/L (21-32) Anion Gap 8 mmol/L (5-15) Blood Urea Nitrogen 11 mg/dL (7-18) Creatinine 0.7 MG/DL (0.55-1.30) Estimat Glomerular Filtration Rate > 60 mL/min (>60) Glucose Level 132 MG/DL (74-106) H Lactic Acid Level 0.70 mmol/L (0.4-2.0) Calcium Level 8.7 MG/DL (8.5-10.1) Total Bilirubin 0.5 MG/DL (0.2-1.0) Aspartate Amino Transf (AST/SGOT) 27 U/L (15-37) Alanine Aminotransferase (ALT/SGPT) 45 U/L (12-78) Alkaline Phosphatase 63 U/L (46-116) C-Reactive Protein, Quantitative 1.3 mg/dL (0.00-0.90) H Pro-B-Type Natriuretic Peptide 307 pg/mL (0-125) H Total Protein 7.3 G/DL (6.4-8.2) Albumin 4.1 G/DL (3.4-5.0) Globulin 3.2 g/dL Albumin/Globulin Ratio 1.3 (1.0-2.7) Amylase Level 61 U/L (25-115) Lipase 63 U/L (73-393) L l Intake and Output 06/19/20 06/20/20 19:00 07:00 Intake Total 480 ml 400 ml Output Total 25 ml 25 ml Balance 455 ml 375 ml Intake Oral 480 ml 400 ml Output Emesis 25 ml 25 ml # Voids 3 3 Objective PHYSICAL EXAMINATION: GENERAL: The patient is a well-developed and well-nourished male, in no apparent distress. HEENT: Eyes, pupils are equal and responsive to light and accommodation. Extraocular movements are intact. NECK: Supple without lymphadenopathy. CHEST: Lungs are clear to auscultation bilaterally without wheezes or rales. CARDIOVASCULAR: Regular rhythm and rate. S1, S2 are normal without murmurs, rubs, or gallops. ABDOMEN: Soft, nontender, and nondistended. Positive bowel sounds. No evidence of hepatosplenomegaly. Currently, no rebound or guarding noted. EXTREMITIES: Negative for clubbing, cyanosis, or edema. RECTAL/GENITAL: Not performed. NEUROLOGIC: Cranial nerves II through XII are grossly intact without focal deficits. Motor strength is 5/5 bilaterally. Deep tendon reflexes are 2+ plantar. Assessment/Plan Problem List: (1) Opiate overdose (2) HTN (hypertension) Assessment & Plan: Continue amlodipine, metoprolol and benazepril per cardiol ogy (3) Depression, major, in partial remission Assessment & Plan: Continue welbutrin and zoloft (4) Elevated troponin I level Assessment & Plan: Serial troponin pending. Cardiology=DR Rutledge (5) Leukocytosis (6) Hypercholesteremia Assessment & Plan: continue lipManny Francisco MD Jun 20, 2020 14:03
--- NOTE | 2020-06-20 15:02 | NUR ---
NURSE NOTES: Dr. Rutledge at bedside, notified of patient's low HR 37 and 2.3 seconds pause.
--- NOTE | 2020-06-20 15:13 | Cardiac Electrophysiology PN ---
Assessment/Plan Assessment/Plan 1. Non-ST elevation myocardial infarction. Troponins are coming down. At this time, the patient has some residual chest discomfort that he believes is because of the CPR that he received from his . In the meantime, we will treat the patient with aspirin and Lipitor. DC Metoprolol for bradycardia. Echo Nl EF Stress test tomorrow. MAy need cardiac cath 3. Accelerated hypertension. Amlodipine increased to 10 mg daily, also on benazepril 40 mg daily 4. Elevated glucose level. Possible prediabetes. 5. Syncope. It is not clear, but could be due to methadone overdose or non-ST elevation myocardial infarction. Subjective Subjective Troponin levels are coming down. Was melinda down to 39 while awake at 12.30 pm today with 2.3 second pause Objective Last 24 Hour Vital Signs Date Time Temp Pulse Resp B/P (MAP) Pulse Ox O2 Delivery O2 Flow Rate FiO2 06/20/20 12:00 57 06/20/20 12:00 96.0 60 20 129/78 (95) 94 06/20/20 09:00 Room Air 06/20/20 08:18 68 153/83 06/20/20 08:17 68 153/83 06/20/20 08:17 153/83 06/20/20 08:00 97.9 68 19 153/83 (106) 92 06/20/20 08:00 58 06/20/20 04:00 98.5 57 20 146/89 (108) 93 06/20/20 04:00 65 06/20/20 00:00 52 06/20/20 00:00 97.1 60 20 134/84 (101) 95 06/19/20 22:24 98.1 06/19/20 21:48 67 138/83 06/19/20 21:00 Room Air 06/19/20 20:13 98.1 06/19/20 20:00 67 06/19/20 19:58 98.1 75 17 139/78 (98) 91 06/19/20 17:00 98.0 73 18 143/70 (94) 92 Intake and Output 06/19/20 06/20/20 19:00 07:00 Intake Total 480 ml 400 ml Output Total 25 ml 25 ml Balance 455 ml 375 ml Intake Oral 480 ml 400 ml Output Emesis 25 ml 25 ml # Voids 3 3 Laboratory Tests Test 06/20/20 07:00 White Blood Count 8.9 K/UL (4.8-10.8) Red Blood Count 5.17 M/UL (4.70-6.10) Hemoglobin 14.9 G/DL (14.2-18.0) Hematocrit 45.2 % (42.0-52.0) Mean Corpuscular Volume 87 FL (80-99) Mean Corpuscular Hemoglobin 28.8 PG (27.0-31.0) Mean Corpuscular Hemoglobin Concent 32.9 G/DL (32.0-36.0) Red Cell Distribution Width 13.0 % (11.6-14.8) Platelet Count 252 K/UL (150-450) Mean Platelet Volume 8.3 FL (6.5-10.1) Neutrophils (%) (Auto) 56.5 % (45.0-75.0) Lymphocytes (%) (Auto) 30.7 % (20.0-45.0) Monocytes (%) (Auto) 9.3 % (1.0-10.0) Eosinophils (%) (Auto) 2.5 % (0.0-3.0) Basophils (%) (Auto) 1.1 % (0.0-2.0) Erythrocyte Sedimentation Rate 3 MM/HR (0-20) Prothrombin Time 11.3 SEC (9.30-11.50) Prothromb Time International Ratio 1.0 (0.9-1.1) Activated Partial Thromboplast Time 26 SEC (23-33) Sodium Level 140 MMOL/L (136-145) Potassium Level 3.9 MMOL/L (3.5-5.1) Chloride Level 102 MMOL/L (98-107) Carbon Dioxide Level 30 MMOL/L (21-32) Anion Gap 8 mmol/L (5-15) Blood Urea Nitrogen 11 mg/dL (7-18) Creatinine 0.7 MG/DL (0.55-1.30) Estimat Glomerular Filtration Rate > 60 mL/min (>60) Glucose Level 132 MG/DL (74-106) H Lactic Acid Level 0.70 mmol/L (0.4-2.0) Calcium Level 8.7 MG/DL (8.5-10.1) Total Bilirubin 0.5 MG/DL (0.2-1.0) Aspartate Amino Transf (AST/SGOT) 27 U/L (15-37) Alanine Aminotransferase (ALT/SGPT) 45 U/L (12-78) Alkaline Phosphatase 63 U/L (46-116) Troponin I 0.052 ng/mL (0.000-0.056) C-Reactive Protein, Quantitative 1.3 mg/dL (0.00-0.90) H Pro-B-Type Natriuretic Peptide 307 pg/mL (0-125) H Total Protein 7.3 G/DL (6.4-8.2) Albumin 4.1 G/DL (3.4-5.0) Globulin 3.2 g/dL Albumin/Globulin Ratio 1.3 (1.0-2.7) Amylase Level 61 U/L (25-115) Lipase 63 U/L (73-393) L Objective HEAD AND NECK: Showed no JVD. LUNGS: Clear. CARDIOVASCULAR: Shows regular S1 and S2 with no gallop or murmur. ABDOMEN: Soft. EXTREMITIES: No pitting edema. Jose R Rutledge MD Jun 20, 2020 15:13
[2020-06-20] MEDS ORDERED: Lexiscan 0.4mg/5ml syringe IV PRN (15:15)
--- NOTE | 2020-06-20 15:17 | NUR ---
NURSE NOTES: Patient refused to be reinserted IV access. will attempt to try later. will cont to monitor. Addendum: 06/20/20 at 1553 by DUNG WHITAKER LVN ABLE TO ESTABLISHED IV ACCESS ON RAC 22G. PATENT AND INTACT. WILL CONT TO MONITOR.
[2020-06-20 16:08] VITALS: BP 149/77
--- NOTE | 2020-06-20 16:20 | NUR ---
NURSE NOTES: CALLED [facility] AND SPOKE WITH LENI FOR HD TOMORROW, 06/21. AWAITING FOR CONFIRMATION. WILL CONT TO MONITOR.
[2020-06-20] MEDS: traMADol 50mg tab ORAL PRN (17:07)
--- NOTE | 2020-06-20 18:38 | NUR ---
NURSE NOTES: PATIENT C/O CONSTIPATION. OBTAINED NEW ORDER AND CARRIED OUT. WILL CONT TO MONITOR.
--- NOTE | 2020-06-20 18:53 | NUR ---
NURSE HAND-OFF REPORT: Important Events on Shift:[NOT CLEARED FOR DISCHARGE PER CARDIO] Patient Status: [FC] Diet: [CCHO MED LOW NA] Pending Orders: [LEXISCAN; NPO] Pending Results/Labs:[IN AM] Pending MD notification:[] Latest Vital Signs: Temperature 96.9 , Pulse 71 , B/P 149 /77 , Respiratory Rate 21 , O2 SAT 91 , , O2 Flow Rate . Vital Sign Comment: [] EKG Rhythm: Sinus Bradycardia Rhythm change?: N MD Notified?: - MD Response: Latest Fabian Fall Score: 35 Fall Risk: Medium Risk Safety Measures: Call light Within Reach, Bed Alarm Zone 1, Side Rails Side Rails x2, Bed position Low and Locked. Fall Precautions: Yellow Socks Door Sign Patient Fall Education Report given to [HERMINIO MARTINEZ].
--- NOTE | 2020-06-20 19:15 | NUR ---
NURSE NOTES: Received patient from HERMINIO Weber. Patient AOx4, able to verbalize needs. On room air, saturating well. Complained of back pain, but discomfort is tolerable per patient. Noted to have lexiscan scheduled for tomorrow, reminded patient that he is NPO after midnight in preparation for his procedure. Bed in lowest position, brakes engaged and bed alarm on. Call light placed within reach.
[2020-06-20 20:00] VITALS: BP 138/81
[2020-06-20] MEDS: Docusate 100mg cap ORAL SCH (21:31)
[2020-06-20] MEDS: Zolpidem 5mg tab ORAL PRN (21:40)
[2020-06-20] MEDS: Miralax 17gm pkt ORAL PRN (22:03)
--- NOTE | 2020-06-20 23:38 | NUR ---
NURSE NOTES: Patient's saturation dropped to 85% on room air. AOx4, not in acute distress. Placed 2L oxygen per nasal cannula, saturating 94-96%
[2020-06-21] VITALS: BP 121/70
[2020-06-21 04:00] VITALS: BP 147/86
[2020-06-21] MEDS: NovoLOG Insulin Flexpen SUBQ SCH ×4 (05:29→21:00)
[2020-06-21] MEDS: Heparin 5000 units/ml inj SUBQ SCH ×3 (05:29→20:56)
--- NOTE | 2020-06-21 06:38 | NUR ---
CASE MANAGEMENT:REVIEW TRANSFERRED FROM [facility] SI: OPIATE OVERDOSE. HTN. ELEVATED TROPONIN 99.9 75 16 171/87 95% ON RA WBC+13.1 CA-8.4 TROPONIN(+) 0.281 IS: NORVASC PO IV ATIVAN Q6HRS PRN METHADONE 120MG PO QD LIPITOR PO QD LOTENSIN PO QD ZOLOFT PO QD WELLBUTRIN PO Q24 HEPARIN SQ Q8HRS : TELEMETRY PLAN: CONTINUOUS CARDIAC MONITORING 2D ECHO SERIAL TROPONIN'S
--- NOTE | 2020-06-21 06:46 | NUR ---
CASE MANAGEMENT:REVIEW 06/20/20 SI: OPIATE OVERDOSE. NSTEMI 96.0 57 20 129/78 94% ON RA TROPONIN(+) 0.125 BNP+307 IS: NORVASC PO QD COLACE PO Q12 ASA PO QD LOPRESSOR PO Q12 METHADONE 120MG PO QD LIPITOR PO QD LOTENSIN PO QD ZOLOFT PO QD WELLBUTRIN PO Q24 HEPARIN SQ Q8HRS : TELEMETRY STATUS DCP: FROM HOME PLAN: STRESS TEST IN AM
--- NOTE | 2020-06-21 06:51 | NUR ---
CASE MANAGEMENT:REVIEW 06/21/20 SI: OPIATE OVERDOSE. NSTEMI 98.7 73 20 147/86 94% ON RA IS: IV LEXISCAN X1 NORVASC PO QD COLACE PO Q12 ASA PO QD LOPRESSOR PO Q12 METHADONE 120MG PO QD LIPITOR PO QD LOTENSIN PO QD ZOLOFT PO QD WELLBUTRIN PO Q24 HEPARIN SQ Q8HRS : TELEMETRY STATUS DCP: FROM HOME PLAN: LEXISCAN STRESS TEST FOR TODAY
--- NOTE | 2020-06-21 07:39 | NUR ---
NURSE HAND-OFF REPORT: Important Events on Shift:[NPO since midnight for stress test today; checklists done and endorsed to AM RN] Patient Status: [full code] Diet: [NPO after midnight] Pending Orders: [] Pending Results/Labs:[lexiscan stress test] Pending MD notification:[] Latest Vital Signs: Temperature 98.7 , Pulse 73 , B/P 147 /86 , Respiratory Rate 20 , O2 SAT 94 , , O2 Flow Rate . Vital Sign Comment: [] EKG Rhythm: Sinus Rhythm Rhythm change?: N MD Notified?: - MD Response: Latest Fabian Fall Score: 35 Fall Risk: Medium Risk Safety Measures: Call light Within Reach, Bed Alarm Zone 1, Side Rails Side Rails x2, Bed position Low and Locked. Fall Precautions: Yellow Socks Door Sign Patient Fall Education Report given to [HERMINIO Lockett].
[2020-06-21 07:43] LABS: ANION GAP 9 mmol/L (5-15); BASOPHILS % (AUTO) 1.5 % (0.0-2.0); BLOOD UREA NITROGEN 13 mg/dL (7-18); CALCIUM 9.3 MG/DL (8.5-10.1); CARBON DIOXIDE 30 MMOL/L (21-32); CHLORIDE 101 MMOL/L (98-107); CREATININE 0.7 MG/DL (0.55-1.30); EOSINOPHILS % (AUTO) 1.8 % (0.0-3.0); HEMATOCRIT 47.5 % (42.0-52.0); HEMOGLOBIN 15.8 G/DL (14.2-18.0); LYMPHOCYTES % (AUTO) 24.6 % (20.0-45.0); MEAN CORPUSCULAR VOLUME 88 FL (80-99); MONOCYTES % (AUTO) 7.8 % (1.0-10.0); NEUTROPHILS % (AUTO) 64.3 % (45.0-75.0); PLATELET COUNT 273 K/UL (150-450); POTASSIUM 3.7 MMOL/L (3.5-5.1); RED CELL DISTRIBUTION WIDTH 12.7 % (11.6-14.8); SODIUM 140 MMOL/L (136-145); WHITE BLOOD COUNT 8.9 K/UL (4.8-10.8)
--- NOTE | 2020-06-21 07:50 | NUR ---
NURSE NOTES: Patient received from HERMINIO Merida. Patient seen sitting on edge of the bed AAOx4 with no acute signs of distress and no complaints of pain 0/10. The patient is on room air with oxygen saturation within normal limits. The patient has a right AC 22G IV that is clean, patent, saline locked and intact. The patients bed is in lowest position, locked, side rails x2 and call light within reach.
[2020-06-21 08:00] VITALS: BP 161/98
[2020-06-21] MEDS: Sertraline 100mg tab ORAL SCH (08:08)
[2020-06-21] MEDS: Docusate 100mg cap ORAL SCH ×2 (08:09→20:55)
[2020-06-21] MEDS: Atorvastatin 20mg tab ORAL SCH (08:09)
[2020-06-21] MEDS: Aspirin EC 81mg tab ORAL SCH (08:10)
[2020-06-21] MEDS: BuPROPion XL 150mg tab ORAL SCH (08:10)
[2020-06-21] MEDS ORDERED: Docusate 100mg cap ORAL SCH (09:00)
[2020-06-21] MEDS ORDERED: Lexiscan 0.4mg/5ml syringe IV PRN (09:30)
--- NOTE | 2020-06-21 10:40 | NUR ---
NURSE NOTES: Patient had episode of PVCs in [place] and trigeminy. Dr. Rutledge made aware. Awaiting results for cardiac stress test. Patient currently in SR with stable VS and no complaints of chest pain or dizziness.
[2020-06-21 12:00] VITALS: BP 146/84
--- NOTE | 2020-06-21 12:30 | Surgery Progress Note ---
Surgery Progress Note Subjective Additional Comments stress test completed doing well no n/v cardiology input appreciated Objective Last 24 Hour Vital Signs Date Time Temp Pulse Resp B/P (MAP) Pulse Ox O2 Delivery O2 Flow Rate FiO2 06/21/20 12:00 96.6 83 18 146/84 (104) 94 06/21/20 09:00 Room Air 06/21/20 08:10 161/98 06/21/20 08:09 69 161/98 06/21/20 08:00 98.6 69 19 161/98 (119) 94 06/21/20 08:00 67 06/21/20 04:00 98.7 73 20 147/86 (106) 94 06/21/20 03:49 60 06/21/20 00:00 98.8 62 20 121/70 (87) 95 06/21/20 00:00 65 06/20/20 21:00 Room Air 06/20/20 20:00 97.7 67 20 138/81 (100) 92 06/20/20 20:00 70 06/20/20 17:37 96.9 06/20/20 16:08 96.9 71 21 149/77 (101) 91 06/20/20 16:00 83 I&O Intake and Output 06/20/20 06/21/20 19:00 07:00 Intake Total 360 ml 150 ml Balance 360 ml 150 ml Intake Oral 360 ml 150 ml # Voids 3 3 Cardiovascular: RSR Respiratory: clear Abdomen: soft, flat, non-tender, present bowel sounds, non-distended Extremities: no edema, no tenderness, no cyanosis Laboratory Tests Test 06/20/20 15:15 06/20/20 22:50 06/21/20 06:48 Troponin I 0.030 ng/mL (0.000-0.056) 0.029 ng/mL (0.000-0.056) 0.018 ng/mL (0.000-0.056) White Blood Count 8.9 K/UL (4.8-10.8) Red Blood Count 5.40 M/UL (4.70-6.10) Hemoglobin 15.8 G/DL (14.2-18.0) Hematocrit 47.5 % (42.0-52.0) Mean Corpuscular Volume 88 FL (80-99) Mean Corpuscular Hemoglobin 29.3 PG (27.0-31.0) Mean Corpuscular Hemoglobin Concent 33.3 G/DL (32.0-36.0) Red Cell Distribution Width 12.7 % (11.6-14.8) Platelet Count 273 K/UL (150-450) Mean Platelet Volume 7.2 FL (6.5-10.1) Neutrophils (%) (Auto) 64.3 % (45.0-75.0) Lymphocytes (%) (Auto) 24.6 % (20.0-45.0) Monocytes (%) (Auto) 7.8 % (1.0-10.0) Eosinophils (%) (Auto) 1.8 % (0.0-3.0) Basophils (%) (Auto) 1.5 % (0.0-2.0) Sodium Level 140 MMOL/L (136-145) Potassium Level 3.7 MMOL/L (3.5-5.1) Chloride Level 101 MMOL/L (98-107) Carbon Dioxide Level 30 MMOL/L (21-32) Anion Gap 9 mmol/L (5-15) Blood Urea Nitrogen 13 mg/dL (7-18) Creatinine 0.7 MG/DL (0.55-1.30) Estimat Glomerular Filtration Rate > 60 mL/min (>60) Glucose Level 99 MG/DL (74-106) Calcium Level 9.3 MG/DL (8.5-10.1) Plan Problems: (1) Syncope (2) Trauma Assessment & Plan: 50-year-old male found down syncopal episode possible loss consciousness trauma likely related to excess dose of methadone. Patient identified to have abnormal labs initially upon outside facility evaluation currently normalized. No diabetic history. On examination no trauma. No hematoma no bruising no fractures no pain. At this time given history considerations on like waiting significant trauma ground-level fall. No further imaging indicated recommended at this time. Most work-up done at the outside facility. Labs noted okay at this point. Evaluate diet. DC planning will follow with recommendations. Thank you letting participate patient's care cardiology eval clear from surgery/trauma d/c planning stress test completed this AM (3) Fall Marbin Muñoz Jun 21, 2020 12:30
--- NOTE | 2020-06-21 13:05 | Internal Med Progress Note ---
Subjective Date of Service: Jun 21, 2020 Physician Name Bee,Manny Attending Physician Fercho Adrian MD Current Medications Medications (Trade) Dose Ordered Sig/Molly Route PRN Reason Start Time Stop Time Status Last Admin Dose Admin Acetaminophen (Tylenol) 650 mg Q6H PRN ORAL Temp >100.5 06/18/20 21:00 07/18/20 20:59 06/19/20 21:54 Al Hydroxide/Mg Hydroxide (Mylanta) 30 ml Q6H PRN ORAL HEARTBURN 06/19/20 12:15 07/19/20 12:14 06/19/20 12:38 Amlodipine Besylate (Norvasc) 10 mg DAILY ORAL 06/21/20 09:00 07/19/20 08:59 06/21/20 08:09 Aspirin (Ecotrin) 81 mg DAILY ORAL 06/20/20 09:00 08/04/20 08:59 06/21/20 08:10 Atorvastatin Calcium (Lipitor) 40 mg DAILY ORAL 06/19/20 09:00 09/17/20 08:59 06/21/20 08:09 Benazepril HCl (Lotensin) 40 mg DAILY ORAL 06/19/20 09:00 07/19/20 08:59 06/21/20 08:10 Bupropion HCl (Wellbutrin XL) 300 mg Q24HRS ORAL 06/19/20 09:00 07/19/20 08:59 06/21/20 08:10 Dextrose (Dextrose 50%) 25 ml Q30M PRN IV Hypoglycemia 06/18/20 19:45 09/16/20 19:44 Dextrose (Dextrose 50%) 50 ml Q30M PRN IV Hypoglycemia 06/18/20 19:45 09/16/20 19:44 Docusate Sodium (Colace) 100 mg EVERY 12 HOURS ORAL 06/20/20 21:00 07/20/20 20:59 06/21/20 08:09 Heparin Sodium (Porcine) (Heparin 5000 units/ml) 5,000 units EVERY 8 HOURS SUBQ 06/18/20 22:00 08/02/20 21:59 06/20/20 21:32 Hydralazine HCl (Apresoline) 25 mg Q6H PRN ORAL SBP >150 06/18/20 21:00 09/16/20 20:59 06/19/20 02:51 Insulin Aspart (NovoLOG) BEFORE MEALS AND HS SUBQ 06/18/20 21:00 09/16/20 20:59 06/20/20 05:58 Lorazepam (Ativan 2mg/ml 1ml) 0.5 mg EVERY 6 HOURS PRN IV For Anxiety 06/19/20 12:15 06/26/20 12:14 06/19/20 13:52 Methadone HCl (Methadone HCl) 120 mg DAILY ORAL 06/19/20 10:00 06/26/20 09:59 06/21/20 08:12 Ondansetron HCl (Zofran) 4 mg Q4H PRN IVP Nausea & Vomiting 06/18/20 21:00 07/18/20 20:59 06/20/20 10:10 Polyethylene Glycol (Miralax) 17 gm DAILY PRN ORAL Constipation 06/20/20 22:00 07/20/20 21:59 06/20/20 22:03 Regadenoson (Lexiscan) 0.4 mg ONCE PRN IV STRESS TEST 06/21/20 09:30 09/19/20 09:29 Sertraline HCl (Zoloft) 200 mg DAILY ORAL 06/19/20 09:00 07/19/20 08:59 06/21/20 08:08 Tramadol HCl (Ultram) 50 mg Q6H PRN ORAL Moderate Pain (Pain Scale 4-6) 06/18/20 21:00 06/25/20 20:59 06/20/20 17:07 Zolpidem Tartrate (Ambien) 5 mg HSPRN PRN ORAL Insomnia 06/18/20 21:00 06/25/20 20:59 06/20/20 21:40 Allergies: Coded Allergies: No Known Allergies (Unverified , 06/18/20) ROS Limited/Unobtainable: No Constitutional: Reports: no symptoms HEENT: Reports: no symptoms Cardiovascular: Reports: no symptoms Respiratory: Reports: no symptoms Gastrointestinal/Abdominal: Reports: no symptoms Genitourinary: Reports: no symptoms Neurologic/Psychiatric: Reports: no symptoms Subjective 50 YO M admitted with opiate overdose. Now Non ST elev ID. Cover for Int Med- Dr Adrian. Await cardiac nuclear med stress test Objective Last Vital Signs Date Time Temp Pulse Resp B/P (MAP) Pulse Ox O2 Delivery O2 Flow Rate FiO2 06/21/20 12:00 89 06/21/20 12:00 96.6 18 146/84 (104) 94 06/21/20 09:00 Room Air Laboratory Tests Test 06/20/20 15:15 06/20/20 22:50 06/21/20 06:48 Troponin I 0.030 ng/mL (0.000-0.056) 0.029 ng/mL (0.000-0.056) 0.018 ng/mL (0.000-0.056) White Blood Count 8.9 K/UL (4.8-10.8) Red Blood Count 5.40 M/UL (4.70-6.10) Hemoglobin 15.8 G/DL (14.2-18.0) Hematocrit 47.5 % (42.0-52.0) Mean Corpuscular Volume 88 FL (80-99) Mean Corpuscular Hemoglobin 29.3 PG (27.0-31.0) Mean Corpuscular Hemoglobin Concent 33.3 G/DL (32.0-36.0) Red Cell Distribution Width 12.7 % (11.6-14.8) Platelet Count 273 K/UL (150-450) Mean Platelet Volume 7.2 FL (6.5-10.1) Neutrophils (%) (Auto) 64.3 % (45.0-75.0) Lymphocytes (%) (Auto) 24.6 % (20.0-45.0) Monocytes (%) (Auto) 7.8 % (1.0-10.0) Eosinophils (%) (Auto) 1.8 % (0.0-3.0) Basophils (%) (Auto) 1.5 % (0.0-2.0) Sodium Level 140 MMOL/L (136-145) Potassium Level 3.7 MMOL/L (3.5-5.1) Chloride Level 101 MMOL/L (98-107) Carbon Dioxide Level 30 MMOL/L (21-32) Anion Gap 9 mmol/L (5-15) Blood Urea Nitrogen 13 mg/dL (7-18) Creatinine 0.7 MG/DL (0.55-1.30) Estimat Glomerular Filtration Rate > 60 mL/min (>60) Glucose Level 99 MG/DL (74-106) Calcium Level 9.3 MG/DL (8.5-10.1) Intake and Output0 06/20/20 06/21/20 19:00 07:00 Intake Total 360 ml 150 ml Balance 360 ml 150 ml Intake Oral 360 ml 150 ml # Voids 3 3 Objective PHYSICAL EXAMINATION: GENERAL: The patient is a well-developed and well-nourished male, in no apparent distress. HEENT: Eyes, pupils are equal and responsive to light and accommodation. Extraocular movements are intact. NECK: Supple without lymphadenopathy. CHEST: Lungs are clear to auscultation bilaterally without wheezes or rales. CARDIOVASCULAR: Regular rhythm and rate. S1, S2 are normal without murmurs, rubs, or gallops. ABDOMEN: Soft, nontender, and nondistended. Positive bowel sounds. No evidence of hepatosplenomegaly. Currently, no rebound or guarding noted. EXTREMITIES: Negative for clubbing, cyanosis, or edema. RECTAL/GENITAL: Not performed. NEUROLOGIC: Cranial nerves II through XII are grossly intact without focal deficits. Motor strength is 5/5 bilaterally. Deep tendon reflexes are 2+ plantar. Assessment/Plan Problem List: (1) Opiate overdose (2) HTN (hypertension) Assessment & Plan: Continue amlodipine, metoprolol and benazepril per cardiology (3) Depression, major, in partial remission Assessment & Plan: Continue welbutrin and zoloft (4) Elevated troponin I level Assessment & Plan: Serial troponin trending normal. Cardiology=DR Rutledge. Await cardiac nuclear med stress test (5) Leukocytosis (6) Hypercholesteremia Assessment & Plan: continue lipitor Manny Bee MD Jun 21, 2020 13:05
--- NOTE | 2020-06-21 13:09 | NUR ---
INSURANCE CLINICALS/REVIEW FAXED TO [facility] #[phone] fax#[phone]
--- NOTE | 2020-06-21 14:29 | Cardiac Electrophysiology PN ---
Assessment/Plan Assessment/Plan 1. Non-ST elevation myocardial infarction. Troponins are coming down. At this time, the patient has some residual chest discomfort that he believes is because of the CPR that he received from his . In the meantime, we will treat the patient with aspirin and Lipitor. Off Metoprolol for bradycardia. Echo Nl EF Stress test pending today. May need cardiac cath 3. Accelerated hypertension. Amlodipine increased to 10 mg daily, also on benazepril 40 mg daily 4. Elevated glucose level. Possible prediabetes. 5. Syncope. It is not clear, but could be due to methadone overdose or non-ST elevation myocardial infarction. DW RN and Subjective Subjective No CP or SOB. Just had stress test. Objective Last 24 Hour Vital Signs Date Time Temp Pulse Resp B/P (MAP) Pulse Ox O2 Delivery O2 Flow Rate FiO2 06/21/20 12:00 89 06/21/20 12:00 96.6 83 18 146/84 (104) 94 06/21/20 09:00 Room Air 06/21/20 08:10 161/98 06/21/20 08:09 69 161/98 06/21/20 08:00 98.6 69 19 161/98 (119) 94 06/21/20 08:00 67 06/21/20 04:00 98.7 73 20 147/86 (106) 94 06/21/20 03:49 60 06/21/20 00:00 98.8 62 20 121/70 (87) 95 06/21/20 00:00 65 06/20/20 21:00 Room Air 06/20/20 20:00 97.7 67 20 138/81 (100) 92 06/20/20 20:00 70 06/20/20 17:37 96.9 06/20/20 16:08 96.9 71 21 149/77 (101) 91 06/20/20 16:00 83 Intake and Output 06/20/20 06/21/20 19:00 07:00 Intake Total 360 ml 150 ml Balance 360 ml 150 ml Intake Oral 360 ml 150 ml # Voids 3 3 Laboratory Tests Test 06/20/20 15:15 06/20/20 22:50 06/21/20 06:48 Troponin I 0.030 ng/mL (0.000-0.056) 0.029 ng/mL (0.000-0.056) 0.018 ng/mL (0.000-0.056) White Blood Count 8.9 K/UL (4.8-10.8) Red Blood Count 5.40 M/UL (4.70-6.10) Hemoglobin 15.8 G/DL (14.2-18.0) Hematocrit 47.5 % (42.0-52.0) Mean Corpuscular Volume 88 FL (80-99) Mean Corpuscular Hemoglobin 29.3 PG (27.0-31.0) Mean Corpuscular Hemoglobin Concent 33.3 G/DL (32.0-36.0) Red Cell Distribution Width 12.7 % (11.6-14.8) Platelet Count 273 K/UL (150-450) Mean Platelet Volume 7.2 FL (6.5-10.1) Neutrophils (%) (Auto) 64.3 % (45.0-75.0) Lymphocytes (%) (Auto) 24.6 % (20.0-45.0) Monocytes (%) (Auto) 7.8 % (1.0-10.0) Eosinophils (%) (Auto) 1.8 % (0.0-3.0) Basophils (%) (Auto) 1.5 % (0.0-2.0) Sodium Level 140 MMOL/L (136-145) Potassium Level 3.7 MMOL/L (3.5-5.1) Chloride Level 101 MMOL/L (98-107) Carbon Dioxide Level 30 MMOL/L (21-32) Anion Gap 9 mmol/L (5-15) Blood Urea Nitrogen 13 mg/dL (7-18) Creatinine 0.7 MG/DL (0.55-1.30) Estimat Glomerular Filtration Rate > 60 mL/min (>60) Glucose Level 99 MG/DL (74-106) Calcium Level 9.3 MG/DL (8.5-10.1) Objective HEAD AND NECK: No JVD. LUNGS: Clear. CARDIOVASCULAR: Regular S1 and S2 with no gallop or murmur. ABDOMEN: Soft. EXTREMITIES: No pitting edema. Jose R Rutledge MD Jun 21, 2020 14:29
--- NOTE | 2020-06-21 14:48 | Cardiology Report ---
APPROVED REPORT EXAM: Two-dimensional and M-mode echocardiogram with Doppler and color Doppler. INDICATION Coronary artery disease M-Mode DIMENSIONS IVSd0.9 (0.7-1.1cm)Left Atrium (MM)2.8 (1.6-4.0cm) LVDd4.9 (3.5-5.6cm)Aortic Root3.3 (2.0-3.7cm) PWd0.9 (0.7-1.1cm)Aortic Cusp Exc.2.1 (1.5-2.0cm) IVSs1.5 cmEPSS0.7 (>1.0cm) LVDs3.1 (2.5-4.0cm) PWs1.5 cm <Conclusion> Technically difficult study due to poor acoustical windows and patient body habitus. Normal left ventricular chamber size, systolic function and wall motion to extent visualized. Left ventricular ejection fraction estimated to be 60-65 %. Study quality precludes accurate assessment of regional wall motion. No evidence of left ventricular hypertrophy. Anterior Echo-free space, may be due to pericardial fat or effusion. Mild left atrial enlargement. Right cardiac chamber sizes are within normal limits. Focal aortic valve sclerosis with adequate cusp excursion. Thickened mitral valve leaflets with normal excursion. Mild mitral annulus and aortic root calcification. Pulmonic valve not well visualized. Normal tricuspid valve structure. IVC at normal size with physiologic collapse. A color flow and spectral Doppler study was performed and revealed: Trace aortic regurgitation. Mitral diastolic velocities of E & A equalization & Tissue Doppler Imaging suggest mildly reduced left ventricular relaxation c/w impaired relaxation diastolic dysfunction. Mild to moderate mitral regurgitation. Mild tricuspid regurgitation. Tricuspid systolic velocities suggests peak right ventricular systolic pressure of 47 mmHg, consistent with mild pulmonary hypertension. Trace pulmonic regurgitation present.
--- NOTE | 2020-06-21 14:53 | Cardiology Report ---
APPROVED REPORT EKG Measurement Heart [id number] <Conclusion> Sinus bradycardia Otherwise normal ECG
--- NOTE | 2020-06-21 14:56 | Diagnostic Imaging Report ---
Indications: Chest pain Technique: Single day single isotope protocol utilized. Initially, resting images obtained using IV administration 10.1 millicuries 99M technetium Myoview. Subsequently, patient underwent lexiscan stress testing. See cardiology report for details. During Lexiscan infusion, IV administration 30.3 mCi 99 M technetium Myoview. SPECT and planar images obtained. SPECT images gated to 8 phases of the cardiac cycle were also obtained, and reformatted into cine images for evaluation of ejection fraction. Comparison: none Findings: Presence or absence of symptoms during infusion is not described on the cardiology report. Per cardiology report, resting EKG demonstrates normal sinus rhythm. Presence or absence of ST changes is not described on the cardiology report. Imaging demonstrates no fixed nor reversible poststress perfusion defects . Calculated post stress ejection fraction 75% Impression: Nonischemic clinical response to pharmacologic stress, per cardiology report Nonischemic electrocardiographic response to pharmacologic stress, per cardiology report No imaging findings to suggest ischemia, at level of stress achieved. Calculated post stress ejection fraction 75%
--- NOTE | 2020-06-21 14:57 | Cardiology Report ---
APPROVED REPORT EKG Measurement Heart [id number] <Conclusion> Normal sinus rhythm Normal ECG
[2020-06-21 16:00] VITALS: BP 154/92
[2020-06-21] MEDS: LORazepam Inj 2mg/ml 1ml IV PRN (18:35)
[2020-06-21] MEDS: Miralax 17gm pkt ORAL PRN (18:44)
--- NOTE | 2020-06-21 19:43 | NUR ---
NURSE HAND-OFF REPORT: Important Events on Shift:[Cardiac Stress Test, miralax for constipation] Patient Status: [Full code] Diet: [CCHO Medium and low sodium] Pending Orders: [N/A] Pending Results/Labs:[Nuclear stress test report] Pending MD notification:[N/A] Latest Vital Signs: Temperature 99.0 , Pulse 83 , B/P 154 /92 , Respiratory Rate 17 , O2 SAT 95 , , O2 Flow Rate . Vital Sign Comment: [] EKG Rhythm: Sinus Rhythm Rhythm change?: N MD Notified?: - MD Response: Latest Fabian Fall Score: 35 Fall Risk: Medium Risk Safety Measures: Call light Within Reach, Bed Alarm Zone 1, Side Rails Side Rails x2, Bed position Low and Locked. Fall Precautions: Yellow Socks Door Sign Patient Fall Education Report given to [HERMINIO Sweet].
--- NOTE | 2020-06-21 19:44 | NUR ---
NURSE NOTES: Important Events on Shift: Received report from Levy Jean RN. Pt awake, alert, oriented x 4, sitting in chair. Pt denies pain or distress at this time. Will continue plan of care and close monitoring. Patient Status: full code Diet: CCHO SUE Pending Orders: none, Pending Results/Labs: troponin series, bmp, cbc Pending MD notification: none Latest Vital Signs: Temperature 98.9 , Pulse 70 , B/P 141 /83 , Respiratory Rate 18 , O2 SAT 95 , , O2 Flow Rate . Vital Sign Comment: stable throughout shift per report. EKG Rhythm: Sinus Rhythm Rhythm change?: N MD Notified?: - MD Response: Latest Fabian Fall Score: 35 Fall Risk: Medium Risk Safety Measures: Call light Within Reach, Bed Alarm Zone 1, Side Rails Side Rails x2, Bed position Low and Locked. Fall Precautions: Yellow Socks, Door Sign, Patient Fall Education, Yellow gown.
[2020-06-21 20:00] VITALS: BP 141/83
[2020-06-21] MEDS: Zolpidem 5mg tab ORAL PRN (20:55)
[2020-06-22] VITALS: BP 142/88
[2020-06-22 04:00] VITALS: BP 137/84
[2020-06-22] MEDS: Heparin 5000 units/ml inj SUBQ SCH ×2 (06:20→13:55)
[2020-06-22] MEDS: NovoLOG Insulin Flexpen SUBQ SCH ×2 (06:21→11:30)
--- NOTE | 2020-06-22 06:29 | NUR ---
CASE MANAGEMENT:REVIEW 06/22/20 SI: OPIATE OVERDOSE NSTEMI. ACCELERATED HYPERTENSION 98.3 62 18 137/84 94% ON RA 2 OF 8 TROPONIN'S POSITIVE LABS CURRENTLY PENDING IS: NORVASC PO QD COLACE PO Q12 ASA PO QD METHADONE 120MG PO QD LIPITOR PO QHS LOTENSIN PO QD ZOLOFT PO QD WELLBUTRIN PO Q24 HEPARIN SQ Q8HRS IV ATIVAN Q6HRS PRN : TELEMETRY STATUS DCP: FROM HOME PLAN: STRESS TEST NON ISCHEMIC ~ DISCHARGE PENDING CARDIAC CLEARANCE
--- NOTE | 2020-06-22 07:19 | NUR ---
NURSE HAND-OFF REPORT: Important Events on Shift: NONE Patient Status: full code Diet: Cardiac SUE Pending Orders: none Pending Results/Labs: none Pending MD notification: none Latest Vital Signs: Temperature 98.3 , Pulse 61 , B/P 137 /84 , Respiratory Rate 18 , O2 SAT 94 , , O2 Flow Rate . Vital Sign Comment: stable throughout shift. EKG Rhythm: Sinus Rhythm Rhythm change?: N MD Notified?: - MD Response: n Latest Fabian Fall Score: 35 Fall Risk: Medium Risk Safety Measures: Call light Within Reach, Bed Alarm Zone 1, Side Rails Side Rails x2, Bed position Low and Locked. Fall Precautions: Yellow Socks, Door Sign, Patient Fall Education Report given to Levy Jean RN
[2020-06-22 07:22] LABS: BASOPHILS % (AUTO) 1.5 % (0.0-2.0); EOSINOPHILS % (AUTO) 1.8 % (0.0-3.0); HEMATOCRIT 47.7 % (42.0-52.0); HEMOGLOBIN 15.5 G/DL (14.2-18.0); LYMPHOCYTES % (AUTO) 24.8 % (20.0-45.0); MEAN CORPUSCULAR VOLUME 90 FL (80-99); MONOCYTES % (AUTO) 7.5 % (1.0-10.0); NEUTROPHILS % (AUTO) 64.4 % (45.0-75.0); PLATELET COUNT 286 K/UL (150-450); RED BLOOD COUNT 5.32 M/UL (4.70-6.10); WHITE BLOOD COUNT 8.7 K/UL (4.8-10.8)
--- NOTE | 2020-06-22 07:40 | NUR ---
NURSE NOTES: Patient received from HERMINIO Sweet. The patient is seen sitting in chair eating breakfast on the bedside table. The patient is AAOx4, with no acute signs of distress and no complaints of pain 0/10. The patient has a R AC 22G Iv that is clean, patent, intact and saline locked. The patient is on room air with oxygen saturation within normal limits. The patients bed is in lowest position, locked, side rails x2 and call light within reach. Patient instructed to press call light for any further needs.
[2020-06-22 08:00] VITALS: BP 173/101
[2020-06-22 08:02] LABS: ANION GAP 12 mmol/L (5-15); BLOOD UREA NITROGEN 17 mg/dL (7-18); CALCIUM 9.5 MG/DL (8.5-10.1); CARBON DIOXIDE 26 MMOL/L (21-32); CHLORIDE 102 MMOL/L (98-107); CREATININE 0.8 MG/DL (0.55-1.30); POTASSIUM 4.7 MMOL/L (3.5-5.1); SODIUM 140 MMOL/L (136-145)
[2020-06-22] MEDS: Sertraline 100mg tab ORAL SCH (08:47)
[2020-06-22] MEDS: Aspirin EC 81mg tab ORAL SCH (08:47)
[2020-06-22] MEDS: Atorvastatin 20mg tab ORAL SCH (08:47)
[2020-06-22] MEDS: BuPROPion XL 150mg tab ORAL SCH (08:47)
[2020-06-22] MEDS: Docusate 100mg cap ORAL SCH (08:48)
--- NOTE | 2020-06-22 09:18 | NUR ---
NURSE NOTES: Patients BP was elevated at 171/101, patient was given morning BP medications, MD aware of elevated BP. Will reassess patients BP in 30 min.
--- NOTE | 2020-06-22 09:38 | Cardiac Electrophysiology PN ---
Assessment/Plan Assessment/Plan 1. Non-ST elevation myocardial infarction. Troponins are coming down. At this time, the patient has some residual chest discomfort that he believes is because of the CPR that he received from his . On aspirin and Lipitor. Off Metoprolol for bradycardia. Echo Nl EF Stress test showed no ischemia. 3. Accelerated hypertension. On Amlodipine 10 mg daily and benazepril 40 mg daily 4. Elevated glucose level. Possible prediabetes. 5. Syncope. It is not clear, but could be due to methadone overdose DW RN and Subjective Subjective No CP or SOB. Stress test showed no ischemia Objective Last 24 Hour Vital Signs Date Time Temp Pulse Resp B/P (MAP) Pulse Ox O2 Delivery O2 Flow Rate FiO2 06/22/20 09:00 Room Air 06/22/20 08:48 65 171/101 06/22/20 08:48 171/101 06/22/20 08:00 67 06/22/20 08:00 98.1 65 18 173/101 (125) 95 06/22/20 04:00 61 06/22/20 04:00 98.3 62 18 137/84 (101) 94 06/22/20 00:00 98.6 68 20 142/88 (106) 95 06/21/20 21:00 Room Air 06/21/20 20:00 85 06/21/20 20:00 98.9 70 18 141/83 (102) 95 06/21/20 19:05 83 17 154/92 95 06/21/20 18:35 70 18 154/92 94 06/21/20 16:00 80 06/21/20 16:00 99.0 70 18 154/92 (112) 93 06/21/20 12:00 89 06/21/20 12:00 96.6 83 18 146/84 (104) 94 Intake and Output 06/21/20 06/22/20 19:00 07:00 Intake Total 550 ml 500 ml Balance 550 ml 500 ml Intake Oral 550 ml 500 ml # Voids 2 2 Laboratory Tests Test 06/21/20 15:29 06/21/20 23:00 06/22/20 04:50 06/22/20 06:54 Troponin I 0.008 ng/mL (0.000-0.056) 0.013 ng/mL (0.000-0.056) 0.006 ng/mL (0.000-0.056) White Blood Count 8.7 K/UL (4.8-10.8) Red Blood Count 5.32 M/UL (4.70-6.10) Hemoglobin 15.5 G/DL (14.2-18.0) Hematocrit 47.7 % (42.0-52.0) Mean Corpuscular Volume 90 FL (80-99) Mean Corpuscular Hemoglobin 29.2 PG (27.0-31.0) Mean Corpuscular Hemoglobin Concent 32.6 G/DL (32.0-36.0) Red Cell Distribution Width 13.0 % (11.6-14.8) Platelet Count 286 K/UL (150-450) Mean Platelet Volume 7.5 FL (6.5-10.1) Neutrophils (%) (Auto) 64.4 % (45.0-75.0) Lymphocytes (%) (Auto) 24.8 % (20.0-45.0) Monocytes (%) (Auto) 7.5 % (1.0-10.0) Eosinophils (%) (Auto) 1.8 % (0.0-3.0) Basophils (%) (Auto) 1.5 % (0.0-2.0) Sodium Level 140 MMOL/L (136-145) Potassium Level 4.7 MMOL/L (3.5-5.1) Chloride Level 102 MMOL/L (98-107) Carbon Dioxide Level 26 MMOL/L (21-32) Anion Gap 12 mmol/L (5-15) Blood Urea Nitrogen 17 mg/dL (7-18) Creatinine 0.8 MG/DL (0.55-1.30) Estimat Glomerular Filtration Rate > 60 mL/min (>60) Glucose Level 91 MG/DL (74-106) Calcium Level 9.5 MG/DL (8.5-10.1) Objective HEAD AND NECK: No JVD. LUNGS: Clear. CARDIOVASCULAR: Regular S1 and S2 with no gallop or murmur. ABDOMEN: Soft. EXTREMITIES: No pitting edema. Jose R Rutledge MD Jun 22, 2020 09:38
[2020-06-22 11:56] VITALS: BP 148/80
--- NOTE | 2020-06-22 12:54 | NUR ---
INSURANCE CLINICALS/REVIEW FAXED TO [facility] #[phone] fax#[phone]
--- NOTE | 2020-06-22 14:30 | NUR ---
NURSE NOTES: Patient has been discharged,Patient is AAOx4 with no complaints of any pain 0/10. Patients IV has been discontinued and was clean and intact with no bleeding. The patients belongings list was verified and signed. Patient education was given to patient regarding medications, disease process and home care and all questions were answered at this time. The patients heart monitor was discontinued and patient dressed self with own clothes. Patient ambulated to own private vehicle accompanied by RN and was met by who would be driving.
--- NOTE | 2020-06-25 16:45 | Discharge Summary ---
Discharge Summary Discharge Summary _ Date of admission: 06/18/2020 Date of discharge: 06/22/[address] Adrian History of Present Illness and Brief Hospital Course Mr. Whitney is a 50-year-old male with past medical history of opiate dependence, hypertension, major depression, and obstructive sleep apnea, who was transferred to [facility] from [facility] emergency room for methadone overdose. Patient had a history of OxyContin use. Patient had been on methadone for the past 10 years. Patient presented to his methadone clinic on June 18, 2020. Patient vomited his methadone dose. Patient then took an extra dose of methadone. Patient was found to be unresponsive. Patient receive d Narcan in the field with subsequent resolution of his unresponsiveness. Patient was initially taken to [facility] emergency room but was soon transferred to [facility] for insurance purposes. Given elevated troponin, patient was evaluated by a brim shaper. His serial troponins were trending down. Patient had some residual chest discomfort that he believed was because of the CPR that he received from his . Patient was continued on aspirin and Lipitor. Patient's metoprolol was discontinued given bradycardia. Echocardiogram showed normal ejection fraction. The stress test showed no ischemia. Given his history of major depression, he was continued on Wellbutrin and Zoloft. Patient was medically stable for discharge and was discharged home on 06/22/2020. Consultants: Cardiology Dr. Rutledge Surgery Dr. Muñoz Discharge Condition Improved and stable Final diagnoses Non-STEMI Accelerated hypertension Hyperglycemia Syncope Opiate overdose Major depression Leukocytosis Hypercholesterolemia I have been assigned to dictate discharge summary for this account. I was not involved in the patient's management Jairo Canela Jun 25, 2020 16:45
== END 2020-06-22 14:15 | disposition home or self-care (01) | DRG 917 ==
LOC: 4E 17:25 → 2E 06-19 22:06
DX: T40.3X1A Poisoning by methadone, accidental (unintentional), initial encounter (principal); I21.4 Non-ST elevation (NSTEMI) myocardial infarction; R55 Syncope and collapse; F32.4 Major depressive disorder, single episode, in partial remission; G47.33 Obstructive sleep apnea (adult) (pediatric); F11.21 Opioid dependence, in remission; E78.00 Pure hypercholesterolemia, unspecified; R07.89 Other chest pain
CPT/HCPCS: 36415; 78452; 80048; 80053; 82150; 82962; 83036; 83605; 83690; 83735; 83880; 84100; 84484; 85025; 85610; 85651; 85730; 86140; 93005; 93017; 93306; J1815; J2405